=== PATIENT | female | born 1960 | race Caucasian/White ===

== ENCOUNTER → 2019-03-20 10:40 | Outpatient (CLI) | payer OTHER ==
[~2019-03-20 10:40] MED LIST: AMBIEN10 MG PO; AMITRIPTYLINE100 MG PO; LIPITOR20 MG PO; ZESTRIL10 MG PO
--- NOTE | 2019-03-24 11:14 | EC ---
PATIENT:MIGUE ARNDT DATE OF SERVICE: 03/20/19 SEX: F MEDICAL RECORD: [id number] DATE OF : 56 LOCATION:[facility] AGE OF PATIENT: 58 ADMISSION DATE: 03/20/19 REFERRING PHYSICIAN: INTERPRETING PHYSICIAN: SARINA ROSARIO MD ECHOCARDIOGRAM REPORT ECHO CHARGES 4 ECHO COMPLETE Date: 03/20/19 CLINICAL DIAGNOSIS: ANGINA/HTN H/O CAD ECHOCARDIOGRAPHIC MEASUREMENTS (adult normal given) AC root (d.<3.7cm) 2.6 cm LV Septum d (<1.2 cm> 1.1 cm Valve Excursion 1.5 cm LV Septum (systole) 1.6 cm Left Atria (s.<4.0cm> 3.9 cm LVPW d(<1.2cm) 1.0 cm RV (d.<2.3cm) 2.5 cm LVPW (sytole) 1.7 cm LV diastole(<5.6CM) 5.2 cm MV E-F(>70mm/sec) cm LV systole 2.9 cm LVOT Diameter 1.7 cm MV exc.(>10mm) cm Est.ejection fraction (50-75%) % DOPPLER: LVIT cm/sec A 123 cm/sec E 106 cm/sec LA cm/sec RVSP 19.3 mmHg LVOT 98.0 cm/sec AOP1/2T m/s Asc. Ao 159 cm/sec RVOT 67.0 cm/sec RA cm/sec PA 132 cm/sec AV Gradient Peak 10.2 mmHg AV Mean 4.8 mmHg AV Area 1.4 cm MV Gradient Peak 6.9 mmHg MV Mean 2.4 mmHg MV Area cm COMMENTS: OP - HC Scow Captain: Marlon KINGOE Child Support Officer: 1 Dr. Rosario TAPE# PACS Pericardial Effusion N DATE OF SERVICE: 03/20/2019 FINDINGS: 1. Left ventricular chamber size is within normal limits. Left ventricular systolic function is normal. Overall ejection fraction is estimated at 55%. 2. Left atrium, right atrium, and right ventricular chamber sizes are within normal limit. 3. Valvular structures have normal structure and motion. 4. Doppler interrogation reveals mild mitral regurgitation only. No other valvular insufficiency or stenosis. ECHOCARDIOGRAM REPORT [id number] MIGUE ARNDT 5. No evidence of pericardial effusion or left ventricular thrombus. TRANSINT:[id number] Voice Confirmation ID: [id number] DOCUMENT ID: [id number] SARINA ORSARIO MD at 1114 CC: [id number] DICTATION DATE: 03/20/19 1606 WATER MAIN INSTALLER HELPER: 03/20/19 1645 DEP CLI 03/20/19 [facility] [address] [place] [id number]
--- NOTE | 2019-03-24 11:14 | ST ---
PATIENT:MIGUE ARNDT MEDICAL RECORD: [id number] SEX: F LOCATION:[facility] ORDER #: ADMISSION DATE: 03/20/19 AGE OF PATIENT: 58 REFERRING PHYSICIAN: INTERPRETING PHYSICIAN: SARINA PONCE MD DATE OF SERVICE: 03/20/2019 PROCEDURE: Nuclear stress test. INDICATION: Angina, coronary artery disease, hypertension, and hyperlipidemia. She was exercised on standard Lexiscan protocol with 30 mCi of sestamibi injected at peak stress and 10 mCi used previously for rest images. FINDINGS: Gated SPECT reveals a preserved ejection fraction at 68% with good wall motioning, thickening, and brightening throughout all segments. SPECT imaging Cardiolite was used as myocardial perfusion agent. There were large areas of ischemia inferiorly, apically, and anteriorly. This includes the basal, mid, apical inferior segments; apex itself; and basal, mid, apical anterior segments. The degree of reversibility is moderate inferiorly and mild anteriorly. The amount of myocardium involved is very large. OVERALL IMPRESSION: This is a high risk nuclear stress test with large area of ischemia anteriorly, inferiorly, and apically, suggestive of multivessel coronary artery disease. We will proceed with coronary angiography as followup study. TRANSINT:[id number] Voice Confirmation ID: [id number] DOCUMENT ID: [id number] SARINA PONCE MD at 1114 CC: SEEMA LLANES MD [id number] DICTATION DATE: 03/21/19 1018 FARM AGENT: 03/21/19 2234 DEP CLI 03/20/19 [place] [id number] [place] [id number]
== END | disposition home or self-care (01) ==
LOC: D.HCCARDIO 10:40
PROVIDERS: ATTEND Internal Medicine Interventional Cardiology
DX: I25.10 Atherosclerotic heart disease of native coronary artery without angina pectoris (principal)

== ENCOUNTER 2019-04-07 10:02 | Outpatient (CLI) | payer OTHER ==
[~2019-04-07] VITALS: Ht 170.2 cm; Wt 78.2 kg
--- NOTE | ~2019-04-07 | HEMODYNAMI ---
PATIENT:MIGUE ARNDT MEDICAL RECORD: [id number] : 56 LOCATION:[facility] ADMISSION DATE: 04/07/19 Generatedon:04/07/201915:25 Patient name: MIGUE ARNDT Patient #: [id number] SSN: [id number] : 1960 Date of study: 04/07/2019 Page: Of Hemodynamic Procedure Report Patient Data Patient Demographics Procedure consent was obtained First Name: MIGUE Gender: Female Last Name: YRIS : 1960 Middle Initial: S Age: 58 year(s) Patient #: [id number] Race: SSN: [id number] Additional ID: [id number] Contact details [address]: [address] [place] [address] State: [place] City: [place] Zip code: [address] Past Medical History Performed procedures and imaging results Date Procedure Procedure Results Comments Stress testing Positive->High ANTERIOR, with SPECT MPI risk INFERIORLY, APICALLY Allergies Allergen Reaction Date Comments Reported Other allergy 04/07/2019 lIPITOR Admission Admission Data Admission Date: 04/07/2019 Admission Time: 10:02 Admit Source: Other Lab Results Lab Result Date: 04/07/2019 Lab Result Time: 10:50 Biochemistry Name Units Result Min Max BUN mg/dl 15 --(--*-)-- 7 18 Creatinine mg/dl 0.8 --(-*--)-- 0.6 1.3 CBC Name Units Result Min Max Hematocrit % 43 --(*---)-- 42 54 Hemoglobin g/dl 15.5 --(-*--)-- 13.5 17.5 Procedure Procedure Types Cath Procedure Diagnostic Procedure [facility] w/Coronaries FFR/IVUS FFR Initial Procedure Description Procedure Date Procedure Date: 04/07/2019 Procedure Start Time: 15:12 Procedure End Time: 15:22 Procedure Staff Name Function Edward Rosario MD Performing Physician Juan Benedict RT Monitor Jennifer Mendez RN Nurse Gold Bain RT Scrub Priyanka Foote RT Scrub Procedure Data Cath Procedure Fluoroscopy Diagnostic fluoroscopy Total fluoroscopy Time: 1.8 time: 1.8 min min Diagnostic fluoroscopy Total fluoroscopy dose: 287 dose: 287 mGy mGy Contrast Material Contrast Material Type Amount (ml) Isovue 300 214 Entry Location Entry Primary Successful Side Size Upsize Upsize Entry Closure Youngblood ccessful Closure Location (Fr) 1 (Fr) 2 (Fr) Remarks Device Remarks Radial Right 6 Fr Mechanical artery Short Compression Estimated blood loss: 5 ml Diagnostic catheters Device Type Used For End Catheter Placement DIAGNOSTIC Sandy 110cm 5 Procedure Fr catheter ([id number]) Procedure Complications No complications Procedure Medications Medication Administration Route Dosage Oxygen etCO2 Nasal cannula 2 l/min Lidocaine 2% added to field 20 Heparin Flush Bag added to field 2 bags (1000units/500ml NS) 0.9% NaCl I.V. 100 ml/hr Versed I.V. 2 mg Fentanyl I.V. 100 mcg Versed I.V. 0.5 mg Hemodynamics Rest HGB: 15.5 (g/dl) Heart Rate: 77 (bpm) Pressure Samples Time Site Value (mmHg) Purpose Heart Use Rate(bpm) 15:15 LV 97/24,32 Snapshot 90 Snapshots Pre Cath Intra NCS Post Cath Vital Signs Time Heart Resp SPO2 etCO2 NIBP (mmHg) Rhythm Pain Sedation Rate (ipm) (%) (mmHg) Status Level (bpm) 15:06:26 75 14 93 41.9 143/74(110) NSR 0 (11) 10(A) , No pain 15:10:40 76 10 94 45.5 135/65(109) NSR 0 (11) 10(A) , No pain 15:14:48 66 12 95 46.3 114/58(81) NSR 0 (11) 9(A) , No pain 15:19:02 84 12 94 47 131/63(91) NSR 0 (11) 10(A) , No pain Medications Time Medication Route Dose Verified Delivered Reason Notes Eff ectiveness by by 15:04:46 Oxygen etCO2 2 Edward Rodriguez used for Nasal l/min Abraham Mendez concaver cannula 15:04:54 Lidocaine 2% added 20ml Edward Leon for local to vial Abraham Rosario MD anesthetic field 15:05:03 Heparin Flush added 2 Edward Leon used for Bag to bags Abraham Rosario MD procedure (1000units/500ml field NS) 15:05:13 0.9% NaCl I.V. 100 Edwardmayra Rodriguez Per ml/hr Abraham Mendez RN physician 15:10:17 Versed I.V. 2 mg Edward Michaelie for Abraham Mendez RN sedation 15:10:24 Fentanyl I.V. 100 Edward Rodriguezie for mcg Abraham Mendez RN sedation 15:14:07 Versed I.V. 0.5 Edward Rodriguezie for mg Abraham Mendez RN sedation Procedure Log Time Note 13:55:27 Diagnostic Cath Status : Elective 14:15:14 ACCPatient has been prescribed/administered the following anti-anginal medication within the last 2 weeks: Beta Nimesh 14:15:25 ACC Patient presents with Unstable Angina CCS Anginal Class 4--Inability to carry out any physical activity w/o angina. Angina may occur at rest. 14:30:17 Gold SALMON(R) sent for patient. Start room use. 14:38:17 Admit Source: Other 14:40:13 Procedure Status Elective Heart Cath (OP). 14:40:18 Time tracking: Regular hours (M-F 7:00 - 5:00) 14:40:21 Plan of Care:Hemodynamics will remain stable., Cardiac rhythm will remain stable., Comfort level will be maintained., Respiratory function will remain adequate., Patient/ family verbilizes understanding of procedure., Procedure tolerated without complication., Recovers from procedure without complications.. 14:45:56 H&P Date Dictated: 04/05/2019 Within 30 days and on chart., H&P Addendum completed by physician on day of procedure. (MUST COMPLETE FOR ALL OUTPATIENTS). 14:51:11 Patient received from Pre/Post Procedure Room to CCL 1 Alert and oriented. Tansferred to table in Supine position. 14:51:13 Warm blankets applied, and joy hugger turned on for patient comfort. 14:51:14 Signed procedure consent form obtained from patient. 14:51:15 Correct patient and procedure confirmed by team. 14:51:15 ECG and BP/O2 sat monitors applied to patient. 14:51:17 Pre-procedure instructions explained to patient. 14:51:17 Pre-op teaching completed and patient verbalized understanding. 14:51:19 Family in waiting room. 14:52:00 Patient NPO since Midnight. 14:53:27 Patient allergic to Other allergylIPITOR 14:53:32 Is the patient allergic to Iodine/contrast media? No. 15:04:46 Oxygen 2 l/min etCO2 Nasal cannula was administered by Jennifer Mendez RN; used for procedure; 15:04:54 Lidocaine 2% 20ml vial added to field was administered by Edward Rosario MD; for local anesthetic; 15:05:03 Heparin Flush Bag (1000units/500ml NS) 2 bags added to field was administered by Edward Rosario MD; used for procedure; 15:05:13 0.9% NaCl 100 ml/hr I.V. was administered by Jennifer Mendez RN; Per physician; 15:05:16 Vital chart was started 15:06:47 Is patient on blood thinner?No 15:06:57 ACC The patient was administered the following blood thiners within the last 24 hours: None 15:07:01 Patient diabetic? Yes. 15:07:02 If diabetic: On Metformin? Yes 15:07:08 If on Metformin: Last Dose? 04/03/2019 15:07:11 Previous problem with sedation/anesthesia? No ? 15:07:13 Snore? Yes 15:07:14 Sleep apnea? No 15:07:14 Deviated septum? No 15:07:15 Opens mouth fully? Yes 15:07:16 Sticks out tongue? Yes 15:07:21 Airway obstruction? No ? 15:07:23 Dentures? No ? 15:07:28 Pre procedure: left posterior tibial pulse 2+ Normal; easily identifiable; not easily obliterated 15:07:31 Patient pain scale 0/10 ?. 15:07:37 IV patent on arrival in left forearm with 0.9% NaCl at [facility]. 15:08:27 Lab Result : BUN 15 mg/dl 15:08:27 Lab Result : Creatinine 0.8 mg/dl 15:08:28 Lab Result : Hemoglobin 15.5 g/dl 15:08:28 Lab Result : Hematocrit 43 % 15:08:30 Lab results completed and on chart. 15:08:33 Right Radial & Right Groin area was prepped with chlora-prep and draped in sterile fashion 15:08:42 Modified Roberto's test Ulnar < 7 seconds 15:08:48 Alarms reviewed by R. N. 15:08:49 Sharps counted by scrub and verified by R.N. 15:08:51 Use device set Radial Dx or PCI 15:08:52 ACIST Syringe (02360) opened to sterile field. 15:08:52 Medline Cath Pack ([id number]) opened to sterile field. 15:08:52 Bag Decanter (2002S) opened to sterile field. 15:08:53 ACIST Hand Control (40414) opened to sterile field. 15:08:53 ACIST Manifold (37497) opened to sterile field. 15:08:54 Tegaderm 4 x 4 (1626W) opened to sterile field. 15:08:54 MBrace Wrist Support ([id number]) opened to sterile field. 15:08:55 SHEATH 6FR RAIN (2714388) opened to sterile field. 15:08:56 EMERALD Guide Wire (829-244) opened to sterile field. 15:09:03 Physician arrived 15:09:03 --------ALL STOP TIME OUT------ 15:09:04 Final Timeout: patient, procedure, and site verified with staff and physician. All members of the team are in agreement. 15:09:05 Right Radial & Right Groin site verified by team. 15:09:08 Fire Safety Assessment: A--An alcohol-based skin anteseptic being used preoperatively., C--Open oxygen or nitrous oxide is being used., D--An ESU, laser, or fiber-optic light is being used. 15:09:10 Physical assessment completed. ASA score P 2 - A patient with mild systemic disease as per Edward Rosario MD. 15:09:19 2) 60-89 Mildly reduced kidney function, and other findings (as for stage 1) point to kidney disease. 15:09:25 Maximum allowable contrast dose (3.7 X eGFR X 0.75)214 ml. 15:09:28 Sedation plan: IV Moderate Sedation Medication:Versed, Fentanyl 15:09:46 Baseline sample Acquired. 15:09:48 Rhythm: sinus rhythm 15:09:50 Full Disclosure recording started 15::57 Zero performed for pressure channel P1 15:10:17 Versed 2 mg I.V. was administered by Jennifer Mendez RN; for sedation; 15:10:24 Fentanyl 100 mcg I.V. was administered by Jennifer Mendez RN; for sedation; 15:12:36 Procedure started. 15:12:40 Local anesthetic to right radial artery with Lidocaine 2% by Edward oRsario MD.INITIAL ACCESS ONLY 15:12:48 A 6 Fr Short sheath was inserted into the Right Radial artery 15:13:28 A DIAGNOSTIC Sandy 110cm 5 Fr catheter (006128) was advanced over the wire and used for Procedure. 15:14:07 Versed 0.5 mg I.V. was administered by Jennifer Mendez RN; for sedation; 15:15:06 LV gram done using SUH 15:15:14 Injector settings: Ml/sec: 5, Volume: 15, 15:15:16 LV hemodynamics recorded. 15:15:20 EF : 70 % 15:16:11 LCA angiography performed. 15:16:16 RCA angiography performed. 15:16:40 Catheter exchanged over wire. 15:16:51 INFLATOR Merit BasixCompak (FG7433) opened to sterile field. 15:16:51 [place] Verrata Plus pressure wire (00800S) opened to sterile field. 15:16:56 GUIDE 6FR XBLAD 3.5 catheter (93054026) opened to sterile field. 15:18:06 6 Fr XBLAD 3.5 guide catheter was inserted over the wire 15:18:32 FFR/IFR wire advanced. 15:18:58 Wire advanced across lesion. 15:20:08 mLAD lesion measured at 0.90 with IFR 15:20:12 Wire removed. 15:20:13 Guide Catheter removed. 15:20:25 Sheath removed intact; hemostasis achieved with Mechanical Compression to the Right Radial artery. 15:20:26 Procedure ended.(Physican Out) 15:20:33 Fluoroscopy time 01.80 minutes. 15:20:35 ZEPHYR REGULAR TR BAND (559325) opened to sterile field. 15:20:37 Flurop Dose total: 287 15:20:37 Fluoroscopy dose: 287 mGy 15:20:44 Dose Area Product 92241 mGy/cm. 15:20:47 Contrast amount:Isovue 300 214ml. 15:20:50 Maximum allowable dose exceeded? No. 15:20:51 Sharps counted by scrub and verified by R.N. 15:20:55 TR band inflated with 12cc of air. 15:20:56 Insertion/operative site no bleeding no hematoma. 15:21:01 Post right radial artery:stable, soft, clean and dry 15:21:02 Post Procedure Pulses reassessed and unchanged 15:21:04 Post-procedure physical assessment completed. ASA score P 2 - A patient with mild systemic disease as per Edward Rosario MD. 15:21:10 Post procedure rhythm: unchanged. 15:21:16 Estimated blood loss: 5 ml 15:21:18 Post procedure instruction explained to patient.Patient verbalizes understanding. 15:21:18 Patient needs reinforcement of post procedure teaching. 15:21:30 Procedure type changed to Cath procedure, Diagnostic procedure, LHC, LHC w/Coronaries, FFR/IVUS, FFR Initial 15:22:02 Procedure and supply charges have been captured, reviewed, submitted and are correct. 15:22:04 Procedure Complication : No complications 15:22:06 Vital chart was stopped 15:22:08 See physician's report for complete and final results. 15:22:09 Report given to Pre/Post Procedure Room. 15:22:10 Patient transfered to Pre/Post Procedure Room with Stretcher. 15:22:11 Procedure ended. 15:22:12 Full Disclosure recording stopped 15:22:15 End room use (Document Last) 15:23:40 ACCDominant side:Left Device Usage Item Name Manufacture Quantity Catalog Hospital Part Current Mini mal Lot# / Number Charge Number Stock Stock Serial# Code ACIST Acist 1 08194 [id number] 809149 108235 20 Syringe Medical (74143) Systems Inc Medline Medline 1 [id number] 685502 40506 069432 5 Cath Pack ([id number]) Bag Microtek 1 165056 47370 893570 5 Decanter Medical Inc. () ACIST Hand Acist 1 05529 854754 779036 993546 5 Control Medical (96591) Systems Inc ACIST Acist 1 86489 872516 458876 683748 5 Manifold Medical (23251) Systems Inc Tegaderm 4 3M 1 1626W 147392 735471 456369 5 x 4 (1626W) MBrace Advanced 1 140-0250-00 445254 72233 644121 5 Wrist Vascular Support Dynamics ([id number]) SHEATH 6FR Cardinal 1 8667023 356029 4467315 031571 5 RAIN Health (8535816) EMERALD Cardinal 1 502-455 311355 852431 890648 5 Guide Wire Health (016-034) DIAGNOSTIC Terumo 1 40-5013 292422 780362 662671 5 Sandy 110cm 5 Fr catheter (328261) INFLATOR Merit 1 QD8126 903164 233533 909747 15 [facility] Medical BasixCompak (ZL7111) [place] 1 08546X 641958 [id number] 359549 5 Verrata Plus pressure wire (14376A) GUIDE 6FR Cardinal 1 96867340 862156 104738 851405 10 XBLAD 3.5 Health catheter (48946461) ZEPHYR Cardinal 1 591274 860079 8388086 479818 5 REGULAR TR Health BAND (516716) Signature Audit [place] Stage Time Signature Unsigned Intra-Procedure 04/07/2019 Juan Benedict 3:25:13 PM RT(R) Signatures Performing Physician : Signature : Edward Rosario MD Date : Time : Monitor : Juan Benedict RT Signature : Date : Time : Nurse : Jennifer Mendez RN Signature : Date : Time : [facility] [place] [address] [place] [address]
[2019-04-07] MEDS ORDERED: GLUCOPHAGE1000 MG PO (10:43)
[2019-04-07] MEDS ORDERED: ALENDRONATE SODI5 MG PO (10:44)
[2019-04-07 10:57] VITALS: BP 146/66; Ht 170.2 cm; Wt 78.2 kg
[2019-04-07 11:22] LABS: BASOPHILS 0.4 % (0-2); EOSINOPHILS 2.2 % (0-7); HEMOGLOBIN 15.5 g/dL (12-16); IMMATURE GRANULOCYTES 0.8 % (0-5); LYMPHOCYTES 32.7 % (15-50); MCH 31.4 pg (26.0-34.0); MEAN PLATELET VOLUME 10.2 fL (7.4-10.4); MONOCYTES 6.3 % (2-11); NEUTROPHILS 57.6 % (40-80); PLATELET COUNT 264 10x3/uL (130-400); RBC 4.94 10x6/uL (4.00-5.40); RDW 12.4 % (11.5-14.5); WBC 10.2 10x3/uL (4.8-10.8)
[2019-04-07 11:33] LABS: ALT (SGPT) 24 U/L (10-68); CALC OSMOLALITY 277 mosm/kg (275-300); CALCIUM 8.8 mg/dL (8.5-10.1); CHLORIDE - SERUM 102 mmol/L (98-107); CHOL - HDL RATIO 3.3 ratio (2.3-4.1); CHOLESTEROL, TOTAL 189 mg/dL (0-200); CREATININE - SERUM 0.8 mg/dL (0.6-1.3); GLUCOSE 113 mg/dL (74-106); HDL CHOLESTEROL 58 mg/dL (32-96); LDL CHOLESTEROL 103 mg/dL (0-100); LDL-HDL RATIO 1.8 ratio (1.5-3.5); POTASSIUM - SERUM 4.1 mmol/L (3.5-5.1); SODIUM 138 mmol/L (136-145); TRIGLYCERIDE 140 mg/dL (30-200); UREA NITROGEN 15 mg/dL (7-18); eGFR NON AFRICAN AMERICAN 77 mL/min (90-120)
--- NOTE | 2019-04-07 15:50 | NUR ---
ROOM AIR, NO RESP DISTRESS. RIGHT WRIST TR BAND CDI, NO BLEEDING OR HEMATOMA NOTED. NO C/O PAIN OR NAUSEA. VSS. FAMILY AT BEDSIDE, CALL LIGHT WITHIN REACH.
--- NOTE | 2019-04-07 16:35 | NUR ---
4CC OF AIR REMOVED FROM TR BAND WITH NO BLEEDING NOTED. VSS. CALL LIGHT WTIHIN REACH.
--- NOTE | 2019-04-07 16:55 | NUR ---
3CC OF AIR REMOVED FROM TR BAND WITH NO BLEEDING NOTED.
--- NOTE | 2019-04-07 17:15 | NUR ---
PIV D/C'D WITH CATHETER INTACT, BAND AID TO SITE. UP TO BEDSIDE TO GET DRESSED. AMBULATED TO RESTROOM.
--- NOTE | 2019-04-07 17:22 | NUR ---
REMAINING AIR REMOVED FROM TR BAND WITH NO BLEEDING NOTED. DRESSING PLACED TO SITE. DISCHARGE INSTRUCTIONS GIVEN, VERBALIZED UNDERSTANDING.
--- NOTE | 2019-04-07 17:33 | NUR ---
TAKEN OUT VIA WHEELCHAIR BY CATH ASSEMBLER FINAL. LEFT FACILITY WITH FAMILY AND ALL PERSONAL BELONGINGS.
--- NOTE | 2019-04-18 12:04 | OP ---
PATIENT NAME: MIGUE ARNDT MEDICAL RECORD: [id number] :56 LOCATION:D.CAT ADMISSION DATE: SURGEON: SARINA PONCE MD DATE OF OPERATION: 04/07/2019 PROCEDURES: 1. Left heart catheterization. 2. Selective coronary angiography: 3. Left ventriculogram. 4. IFR INDICATION: Chest pain, coronary artery disease, previous PTCA stent, abnormal nuclear stress test. PROCEDURE IN DETAIL: After informed consent was obtained and after a detailed description of risks, benefits as well as alternative therapies, the patient elected to proceed with angiogram and heart catheterization. The right radial area was prepped and draped in normal sterile fashion. Right radial artery was cannulated via modified Seldinger technique with placement of 6-Swedish sheath. All catheters exchanged through this sheath. FINDINGS: Left ventriculogram was performed in standard 30-degree SUH view, reveals good cardiac wall motion, ejection fraction 70%. SELECTIVE CORONARY ANGIOGRAPHY: 1. Left main is with no significant angiographic disease. 2. Left anterior descending has previously placed stent of the diagonal. There was a questionable stenosis in the LAD itself; however; IFR was normal. 3. Left circumflex has mild irregularities, but no flow-limiting stenosis. 4. Right coronary has mild irregularities, but no flow-limiting stenosis. OVERALL IMPRESSION: Wide patency of the previously placed stent in the left anterior descending diagonal. No disease elsewise. Continue medical management of the coronary artery disease and cardiac risk factors. TRANSINT:[id number] Voice Confirmation ID: [id number] DOCUMENT ID: [id number] SARINA PONCE MD at 1204 CC: [id number] DICTATION DATE: 04/07/19 1522 FOLDER INSPECTOR: 04/07/19 1614 DEP CLI 04/07/19 [place] [id number]
== END 2019-04-07 17:33 | disposition home or self-care (01) ==
LOC: D.CATH 10:02
PROVIDERS: ATTEND Internal Medicine Interventional Cardiology
DX: I25.119 Atherosclerotic heart disease of native coronary artery with unspecified angina pectoris (principal); Z95.5 Presence of coronary angioplasty implant and graft; Z01.812 Encounter for preprocedural laboratory examination

== ENCOUNTER → 2019-06-22 16:57 | Outpatient (CLI) | payer OTHER ==
[2019-04-07 10:57] VITALS: BMI 27.0
[~2019-06-22 16:57] MED LIST changes: +ALENDRONATE SODI5 MG PO; +GLUCOPHAGE1000 MG PO
[2019-06-22 17:51] LABS: CHOL - HDL RATIO 3.6 ratio (2.3-4.1); LDL-HDL RATIO 2.3 ratio (1.5-3.5)
== END | disposition home or self-care (01) ==
LOC: D.LABREF 16:57
PROVIDERS: ATTEND Internal Medicine Interventional Cardiology
DX: E78.5 Hyperlipidemia, unspecified (principal)

== ENCOUNTER → 2019-08-09 18:32 | Outpatient (CLI) | payer OTHER ==
[2019-04-07 10:57] VITALS: BMI 27.0
[2019-08-09 19:05] LABS: LDL-HDL RATIO 1.7 ratio (1.5-3.5)
== END | disposition home or self-care (01) ==
LOC: D.LABREF 18:32
PROVIDERS: ATTEND Internal Medicine Cardiovascular Disease
DX: I25.10 Atherosclerotic heart disease of native coronary artery without angina pectoris (principal)

== ENCOUNTER → 2019-11-07 17:34 | Outpatient (CLI) | payer OTHER ==
[2019-04-07 10:57] VITALS: BMI 27.0
[2019-11-07 18:11] LABS: CHOL - HDL RATIO 2.7 ratio (2.3-4.1); LDL-HDL RATIO 1.3 ratio (1.5-3.5)
== END | disposition home or self-care (01) ==
LOC: D.LABREF 17:34
PROVIDERS: ATTEND Internal Medicine Cardiovascular Disease
DX: E78.5 Hyperlipidemia, unspecified (principal)

== ENCOUNTER → 2020-03-07 14:45 | Outpatient (CLI) | payer OTHER ==
[2019-04-07 10:57] VITALS: BMI 27.0
== END | disposition home or self-care (01) ==
LOC: D.LAB 14:45
PROVIDERS: ATTEND Internal Medicine Pulmonary Disease
DX: Z11.59 Encounter for screening for other viral diseases (principal)

== ENCOUNTER → 2020-03-11 12:35 | Outpatient (CLI) | payer OTHER ==
[2019-04-07 10:57] VITALS: BMI 27.0
== END | disposition home or self-care (01) ==
LOC: D.RT 12:35
PROVIDERS: ATTEND Internal Medicine Pulmonary Disease
DX: R91.1 Solitary pulmonary nodule (principal); R05 Cough